=== PATIENT | male | born 1940 | race Caucasian/White ===

== ENCOUNTER 2023-07-24 18:50 | Emergency (ER) | payer MEDICARE ==
[~2023-07-24] VITALS: Ht 180.3 cm; Wt 83.9 kg
[2023-07-24 19:57] LABS: BASO # 0.1 10*3/uL (0.0-0.1); BASO % 0.9 % (0.0-1.0); EOS # 0.2 10*3/uL (0.0-0.4); EOS % 2.9 % (1.0-4.0); HEMATOCRIT 44.9 % (42.0-52.0); LYMPH # 1.3 10*3/uL (1.3-4.4); MEAN CELL VOLUME 88.9 fl (80.0-94.0); MEAN CORPUSCULAR HGB 29.1 pg (27.0-31.0); MEAN CORPUSCULAR HGB CONC 32.7 g/dl (33.0-37.0); MEAN PLATELET VOLUME 8.9 fl (9.6-12.3); MONO # 0.9 10*3/uL (0.1-1.0); MONO % 11.2 % (3.0-9.0); NEUT # 5.2 10*3/uL (2.3-7.9); NEUT % 67.6 % (47.0-73.0); PLATELET COUNT AUTOMATED 276 10*3/uL (130-400); RED BLOOD COUNT 5.05 10*6/uL (4.50-5.90); RED CELL DISTRI WIDTH 13.1 % (0-14.5); WHITE BLOOD COUNT 7.7 10*3/uL (4.8-10.8)
[2023-07-24 20:21] LABS: ALKALINE PHOSPHATASE 142 U/L (46-116); BUN 16 mg/dl (9-23); CHLORIDE 107 mmol/L (98-107); POTASSIUM 4.5 mmol/L (3.4-5.1); SGPT/ALT 30 U/L (5-49); TOTAL PROTEIN 7.3 gm/dL (6.0-8.0)
== END 2023-07-24 21:03 | disposition home or self-care (01) ==
LOC: ED 18:50
PROVIDERS: Physician Assistant Medical
DX: E11.649 Type 2 diabetes mellitus with hypoglycemia without coma (principal); Z91.148 Patient's other noncompliance with medication regimen for other reason